=== PATIENT | female | born 1965 | race Caucasian/White ===

== ENCOUNTER 2016-07-25 08:00 | Day surgery (SDC) | payer OTHER ==
[~2016-07-25] VITALS: Ht 154.9 cm; Wt 118.0 kg
[~2016-07-25 08:00] MED LIST: ALPRAZOLAM0.5 MG; DILAUDID2 MG PO; FLEXERIL10 MG PO; GLUCOPHAGE850 MG PO; KADIAN30 MG PO; LEVOTHYROXINE25 MCG; LISINOPRIL20 MG PO; LYRICA100 MG PO; METFORMIN HCL500 MG; METFORMIN HCL850 MG PO; METOPROLOL SUCC50 MG; NAPROSYN500 MG PO; PERCOCET 10/1 TABLET PO; PRINIVIL20 MG PO; SIMVASTATIN20 MG PO; SYNTHROID25 MCG PO; TOPROL XL50 MG PO; VITAMIN D33000 UNIT PO; XANAX0.5 MG PO; ZOCOR20 MG PO
[2016-07-25] MEDS ORDERED: GLYBURIDE1.25 MG PO (08:25)
[2016-07-25 08:28] VITALS: BP 101/50
[2016-07-25 09:25] LABS: POINT-OF-CARE METER ID UU14174212; POINT-OF-CARE USER ID AHSRSCSLC11
[2016-07-25] MEDS ORDERED: IBUPROFEN800 MG PO (11:58)
[2016-07-25] MEDS ORDERED: ENDOCET 5-3251 EACH PO (11:58)
[2016-07-25 12:31] LABS: POINT-OF-CARE METER ID UU13113675
[2016-07-25 14:42] VITALS: BP 132/72; BP 145/77
[2016-07-25 16:14] VITALS: BP 145/77
[2016-07-25 18:00] VITALS: BP 145/74
== END 2016-07-25 18:00 | disposition home or self-care (01) ==
LOC: SDC 08:00
PROVIDERS: Obstetrics & Gynecology
PROC: 0UT94ZZ Resection of Uterus, Percutaneous Endoscopic Approach (ICD-10-PCS; principal; 2016-07-25)
PROC: 0UTC4ZZ Resection of Cervix, Percutaneous Endoscopic Approach (ICD-10-PCS; 2016-07-25)
PROC: 0UT24ZZ Resection of Bilateral Ovaries, Percutaneous Endoscopic Approach (ICD-10-PCS; 2016-07-25)
PROC: 0UT74ZZ Resection of Bilateral Fallopian Tubes, Percutaneous Endoscopic Approach (ICD-10-PCS; 2016-07-25)
PROC: 0TJB8ZZ Inspection of Bladder, Via Natural or Artificial Opening Endoscopic (ICD-10-PCS; 2016-07-25)
DX: D25.1 Intramural leiomyoma of uterus (principal); N95.0 Postmenopausal bleeding; N84.0 Polyp of corpus uteri; N80.0 Endometriosis of uterus; I10 Essential (primary) hypertension; E11.9 Type 2 diabetes mellitus without complications; E03.9 Hypothyroidism, unspecified; E78.5 Hyperlipidemia, unspecified; E66.01 Morbid (severe) obesity due to excess calories; Z68.42 Body mass index [BMI] 45.0-49.9, adult; Z80.3 Family history of malignant neoplasm of breast; Z80.41 Family history of malignant neoplasm of ovary; Z79.84 Long term (current) use of oral hypoglycemic drugs; F17.210 Nicotine dependence, cigarettes, uncomplicated
CPT/HCPCS: 82948; 88307; J0131; J0330; J0690; J1100; J1170; J1885; J2405; J2710; J2765; J3010; J7120